=== PATIENT | female | born 1985 | race African-American/Black ===

== ENCOUNTER 2019-02-11 10:34 | Emergency (ER) | payer MEDICAID ==
[~2019-02-11] VITALS: Ht 170.2 cm; Wt 65.0 kg
[~2019-02-11 10:34] MED LIST: IBUP-779 PO; IRON18TA PO; METH PO; mvi PO
[2019-02-11 14:02] VITALS: BP 102/59
== END 2019-02-11 16:31 | disposition left against medical advice (07) ==
LOC: ER 10:34
DX: N93.9 Abnormal uterine and vaginal bleeding, unspecified (principal); Z53.21 Procedure and treatment not carried out due to patient leaving prior to being seen by health care provider